=== PATIENT | female | born 1995 | race Native Hawaiian/Other Pacific Islander ===

== ENCOUNTER 2024-11-11 11:08 | Emergency (ER) | payer MEDICAID, SELFPAY ==
[2024-11-11 11:10] VITALS: BMI 29.7
--- NOTE | 2024-11-11 11:46 | XR_ITS ---
Examination: Abdomen sonogram, Limited Date and time of exam: November 11, 2024 12 noon Indications: Epigastric pain with nausea vomiting today Technique: Real-time wilburn scale transabdominal sonographic images of the upper abdomen obtained. Findings: Multiple gallstones Gallbladder wall 0.3 cm no edema Common bile duct 0.4 cm Pancreatic head 2.0 cm Liver 18 cm fatty infiltration focal fatty sparing Gallbladder 3.4 cm Normal hepatopedal venous flow Patent IVC Impression: Cholelithiasis, negative for cholecystitis Mild hepatomegaly fatty liver
--- NOTE | 2024-11-11 11:47 | EDNOTE_ITS ---
<Statement entered by Meg Hogue MD - 11/11/24 15:03> As co-signing physician, I was present and available for consult prn. I concur with the plan and care as documented by the midlevel provider. ED General RME/HPI General Chief complaint: Abdominal Pain Stated complaint: EPIGASTRIC PAIN WITH N/V @ 0300 Time Seen by Provider: 11/11/24 11:45 Arrival date/time: 11/11/24 11:08 CC: Epigastric pain with radiation to the right upper quadrant HPI onset at 3 AM this morning 10 on a 10 scale took Gas-X, the pain is decreased to an 8 on a 10 scale. Vomited x 1 currently nauseated. Denies fever chills shortness of breath or difficulty breathing. Prior history of minor epigastric pain but nothing as significant as today. Related Data Previous Rx's ?Medication ?Instructions ?Recorded ketorolac 10 mg tablet 10 mg PO Q8H #10 tabs Allergies Allergy/AdvReac Type Severity Reaction Status Date / Time pecan nut Allergy Severe Anaphylaxis Verified 11/11/24 11:13 walnut Allergy Severe Anaphylaxis Verified 11/11/24 11:13 Review of Systems Review of Systems Narrative Review of Systems: GEN: No fever, no chills, no weight loss EYES: No discharge, no visual changes, no pain HEENT: No ear pain, no congestion, no sore throat PULM: No shortness of breath, no cough, no congestion CV: No chest pain, no dyspnea on exertion, no palpitations GI: No nausea, no vomiting, no diarrhea, + pain, no constipation : No frequency, no urgency, no dysuria MUSC/SKEL: No joint pain, no back pain SKIN: No rash PSYCH: No hallucinations, no depression HEME/LYMPH: No easy bleeding or bruising tendencies NEURO: No weakness, no headache Past Medical History Social History SMOKING STATUS: Never smoker ED Exam Narrative Physical exam: [General: In mild discomfort but not in any acute distress Head normocephalic HEENT: Within acceptable limits Neck is supple nontender Chest equal chest rise nontender to palpation Respiratory: Clear to auscultation no wheezes crackles or rubs CV: Rate rhythm is regular no murmurs rubs or clicks Abdomen: Epigastric pain with palpation no reflexive guarding no rebound tenderness there is also right upper quadrant tenderness with palpation. No left upper quadrant or lower quadrant tenderness with palpation Back: No CVA tenderness no spinous process tenderness from cervical spine thoracic and lumbar spine Skin: Intact no petechiae rash induration ulceration or crepitus Extremities: Moving all extremity against resistance cap refill less than 2 seconds neurosensory intact Neuro: Awake alert oriented x3 Glascow coma 15 no focal deficits] Note, the patient was very surprised that she had tenderness in the right upper quadrant of the abdomen Course Quality Measures none Orders Category Date Time Status US gall bladder Stat Exams 11/11/24 11:46 Completed CBC Stat Lab 11/11/24 12:37 Received CMP [Comprehensive Metabolic Panel] Stat Lab 11/11/24 12:37 Completed Lipase Stat Lab 11/11/24 12:37 Completed Urinalysis Stat Lab 11/11/24 12:12 Completed Vital Signs Vital signs: Vital Signs Temperature 98.4 F 11/11/24 11:49 Pulse Rate 69 11/11/24 11:49 Respiratory Rate 19 11/11/24 11:49 Blood Pressure 134/83 H 11/11/24 11:49 Pulse Oximetry (%) 100 11/11/24 11:49 Oxygen Delivery Method Room Air 11/11/24 11:49 [facility] Patient data External records reviewed:: [facility] previous records Clinical information provided by:: patient Social determinants that could affect healthcare access:: none Patient has the following chronic illnesses:: Hypertension How is presenting disease/condition affected by chronic disease/condition?: u neffected by Evaluation data The following diagnostics were reviewed and interpreted by me:: lab results and radiology exam(s) Lab and/or radiology exams considered but not ordered:: CMP shows no acute electrolyte imbalances renal Chandrika transaminitis or T. bili elevation Urine is negative for urinary tract infection. Gallbladder shows multiple stones. Interpretation Summary: Gallstones right upper quadrant abdominal pain needs to follow-up outpatient with surgeon Medications Medications considered but not ordered:: None Medication administrations:: None Consultations Consultation(s) initiated? (list below): No Diagnosis Differential Diagnosis ED Complaint MDM: Cholelithiasis choledocholithiasis pancreatitis gastritis Most likely diagnosis given after review of the tests above:: Cholelithiasis Admission Indicated Admission indicated?: not indicated Explain why admission is indicated or not indicated:: Stable for discharge Admission Request Was there a request for admission?: No Disposition Plan Disposition Plan: Discharge Discharge Attestation Discharge Attestation: The patient and all family members were given an opportunity to ask questions and understood the discharge instructions. Discharge instructions specifically effects, indications for sooner follow up or return to the emergency department, and the expected course of current diagnosis. Patient condition: Stable Medical Decision Making Differential Diagnosis Differential Diagnosis: Cholelithiasis choledocholithiasis pancreatitis gastritis Lab Data 11/11/24 12:37 11/11/24 12:37 Labs: Lab Results 11/11/24 11/11/24 Range/Units 12:12 12:37 Sodium 139 (136-145) mMol/L Potassium 4.4 (3.4-5.1) mMol/L Chloride 104 (98-107) mMol/L Carbon Dioxide 26.7 (20.0-31.0) mMol/L Anion Gap 8 (7-16) BUN 8 L (9-23) mg/dL Creatinine 0.7 (0.6-1.3) mg/dL Estim Creat Clear Calc 136.1 (>60) mL/min eGFR > 60 (60 - ) See Note BUN/Creatinine Ratio 11 L (12-20) Ratio Glucose 136 H (74-106) mg/dL Calculated Osmolality 277 (275-295) Calcium 9.7 (8.3-10.6) mg/dL Corrected Calcium 9.7 (8.5-10.1) mg/dL Total Bilirubin 0.4 (0.3-1.2) mg/dL AST 27 (0-34) U/L ALT 49 (10-49) U/L Alkaline Phosphatase 56 (46-116) U/L Total Protein 8.4 H (5.7-8.2) gm/dL Albumin 5.0 (3.5-5.0) gm/dL Globulin 3.4 (2.3-3.5) gm/dL Albumin/Globulin Ratio 1.5 (1.2-2.2) Lipase 34 (12-53) U/L Ur Collection Type Clean Catch Urine Color Lt-Yellow (Lt Yel-Yel) Urine Clarity Clear (Clear/Hazy) Urine pH 7.5 H (5.0-7.0) Ur Specific [place] 1.024 (1.001-1.035) Urine Protein Trace (Neg - Trace) Urine Glucose (UA) Trace (Negative) Urine Ketones 1+ A (Negative) Urine Blood Negative (Negative) Urine Nitrite Negative (Negative) Urine Bilirubin Negative (Negative) Urine Urobilinogen (Auto) Negative (0.0-1.0) mg/dL Ur Leukocyte Esterase Negative (Negative) Urine RBC 7 H (0-3) /hpf Urine WBC 2 (0-5) /hpf Ur Squamous Epith Cells 9 H (0-5) /hpf Urine Bacteria None (None) Discharge Plan Plan Patient Disposition: HOME (Self Care) Patient condition on transfer: Stable Prescriptions/Referrals Prescriptions/Med Rec: New ketorolac 10 mg tablet 10 mg PO Q8H Qty: 10 0RF Rx Instructions: maximum total duration of 5 days from all oral, intranasal, or parenteral formulations Referrals: Shannan Fuentes MD [Physician] - In 1 week Crissy Hutchison [Primary Care Provider] - In 1 week Problem List Clinical Impression: Right upper quadrant abdominal pain, Gallstones Patient/Caregiver Discharge Instructions Other Activity Instructions:: Start a bland diet, take the medications as prescribed, follow-up with the surgeon listed above if there is a worsening of symptoms return the emergency room for reevaluation. Education Materials: What Are Gallstones, ED Diet, [place] (Adult) Print Language: Icelandic Stand Alone Forms: Ketty Award Info., Work/School Release, Patient Portal Info Letter HERON/JONO Supervising Physician HERON/JONO Supervising Physician: Eric Ordonez ENP
[2024-11-11 11:49] VITALS: BP 134/83; PULSE 69; RESP 19; TEMP 36.9; O2SAT 100
[2024-11-11 12:22] LABS: Collection Type, Urine Clean Catch
[2024-11-11 12:31] LABS: Bilirubin,Urine Negative (Negative); Blood,Urine Negative (Negative); Clarity,Urine Clear (Clear/Hazy); Color,Urine Lt-Yellow (Lt Yel-Yel); Glucose, Urine Trace (Negative); Ketones,Urine 1+ (Negative); Leukocyte Esterase,Urine Negative (Negative); Nitrite,Urine Negative (Negative); PH,Urine 7.5 (5.0-7.0); Protein,Urine Trace (Neg - Trace); RBC,Urine 7 /hpf (0-3); Specific Gravity,Urine 1.024 (1.001-1.035); Squamous Epithelial Cell,Urine 9 /hpf (0-5); Urobilinogen,Urine Negative mg/dL (0.0-1.0); WBC,Urine 2 /hpf (0-5)
[2024-11-11 12:46] LABS: Basophils % (Auto) 0 % (0-2.5); Eosinophils % (Auto) 0 % (0-10); Hematocrit 40.7 % (36.0-46.0); Hemoglobin 13.7 g/dL (12.0-16.0); Immature Granulocytes % (Auto) 0 % (0-0); Immature Granulocytes Auto 0.04 Thou/mm3 (0.00-0.00); Lymphocytes # (Auto) 1.1 Thou/mm3 (1.0-4.8); Lymphocytes % (Auto) 10 % (10-50); Mean Corpuscular HGB Conc 33.7 g/dl (31.0-37.0); Mean Corpuscular Hemoglobin 28.3 pg (25.0-35.0); Mean Corpuscular Volume 84 fL (80-100); Monocytes # (Auto) 0.2 Thou/mm3 (0.0-0.8); Monocytes % (Auto) 1 % (0-12); Neutrophils # (Auto) 9.8 Thou/mm3 (1.8-7.7); Neutrophils % (Auto) 88 % (37-80); Nucleated Red Blood Cell % 0 /100 WBC (0); Platelet Count 424 Thou/mm3 (140-440); RDW Standard Deviation 38.9 fL (36.4-46.3); Red Blood Count 4.84 Miln/mm3 (4.00-5.20); White Blood Count 11.2 Thou/mm3 (3.6-11.0)
[2024-11-11 13:04] LABS: Alanine Aminotransferase 49 U/L (10-49); Albumin/Globulin Ratio 1.5 (1.2-2.2); Alkaline Phosphatase 56 U/L (46-116); Anion Gap 8 (7-16); Aspartate Amino Transferase 27 U/L (0-34); BUN/Creatinine Ratio 11 Ratio (12-20); Bilirubin,Total 0.4 mg/dL (0.3-1.2); Blood Urea Nitrogen 8 mg/dL (9-23); Calcium 9.7 mg/dL (8.3-10.6); Calcium (Corrected) 9.7 mg/dL (8.5-10.1); Carbon Dioxide 26.7 mMol/L (20.0-31.0); Chloride 104 mMol/L (98-107); Creatinine (Component) 0.7 mg/dL (0.6-1.3); Estimated Creatinine Clearance 136.1 mL/min (>60); Globulin 3.4 gm/dL (2.3-3.5); Glucose 136 mg/dL (74-106); Lipase 34 U/L (12-53); Osmolality,Calculated 277 (275-295); Potassium 4.4 mMol/L (3.4-5.1); Sodium 139 mMol/L (136-145); Total Protein 8.4 gm/dL (5.7-8.2); eGFR > 60 See Note
== END 2024-11-11 13:58 | disposition home or self-care (01) ==
PROVIDERS: Registered Nurse General Practice; Emergency Provider Emergency Medicine; PCP Nurse Practitioner Family
DX: K80.20 Calculus of gallbladder without cholecystitis without obstruction (principal)
CPT/HCPCS: 36415; 76705; 80053; 81001; 83690; 85025; 99284

== ENCOUNTER 2025-04-03 09:55 | Day surgery (SDC) | payer MEDICAID, SELFPAY ==
[2025-04-01 11:10] VITALS: BMI 31.3
--- NOTE | 2025-04-01 11:16 | EKG_ITS ---
[facility] Test Date: 2025-04-01 Pat Name: EVA NESBITT Department: Room: - Gender: Female Construction Crew Member: ZEHRA : 1995 Requested By: Frank Mensah Order Number: [id number] Reading MD: Frank Mensah Measurements Intervals [place] Rate: 62 P: 9 RI: 143 QRS: 37 QRSD: 90 T: 51 QT: 412 QTc: 421 Interpretive Statements SINUS RHYTHM No previous ECG available for comparison /store/S0/[id number]/ecg/[id number].pdf
[2025-04-01 12:04] LABS: Basophils # (Auto) 0.1 Thou/mm3 (0.0-0.2); Basophils % (Auto) 1 % (0-2.5); Eosinophils # (Auto) 0.2 Thou/mm3 (0.0-0.5); Eosinophils % (Auto) 3 % (0-10); Hematocrit 37.2 % (36.0-46.0); Hemoglobin 12.3 g/dL (12.0-16.0); Immature Granulocytes Auto 0.01 Thou/mm3 (0.00-0.00); Lymphocytes # (Auto) 2.9 Thou/mm3 (1.0-4.8); Lymphocytes % (Auto) 39 % (10-50); Mean Corpuscular HGB Conc 33.1 g/dl (31.0-37.0); Mean Corpuscular Hemoglobin 28.8 pg (25.0-35.0); Mean Corpuscular Volume 87 fL (80-100); Monocytes # (Auto) 0.4 Thou/mm3 (0.0-0.8); Monocytes % (Auto) 6 % (0-12); Neutrophils # (Auto) 3.8 Thou/mm3 (1.8-7.7); Neutrophils % (Auto) 51 % (37-80); Nucleated Red Blood Cell # 0.00 Thou/mm3 (0.00-0.00); Nucleated Red Blood Cell % 0 /100 WBC (0); Platelet Count 382 Thou/mm3 (140-440); RDW Standard Deviation 40.2 fL (36.4-46.3); Red Blood Count 4.27 Miln/mm3 (4.00-5.20); White Blood Count 7.4 Thou/mm3 (3.6-11.0)
[2025-04-01 12:17] LABS: Alanine Aminotransferase 33 U/L (10-49); Albumin, Serum 4.8 gm/dL (3.5-5.0); Albumin/Globulin Ratio 1.7 (1.2-2.2); Alkaline Phosphatase 56 U/L (46-116); Anion Gap 7 (7-16); Aspartate Amino Transferase 23 U/L (0-34); BUN/Creatinine Ratio 19 Ratio (12-20); Bilirubin,Total 0.3 mg/dL (0.3-1.2); Blood Urea Nitrogen 13 mg/dL (9-23); Calcium 10.0 mg/dL (8.3-10.6); Calcium (Corrected) 10.0 mg/dL (8.5-10.1); Carbon Dioxide 26.3 mMol/L (20.0-31.0); Chloride 107 mMol/L (98-107); Creatinine (Component) 0.7 mg/dL (0.6-1.3); Estimated Creatinine Clearance 138.4 mL/min (>60); Globulin 2.8 gm/dL (2.3-3.5); Glucose 90 mg/dL (74-106); HCG,Qualitative Serum Negative; Osmolality,Calculated 279 (275-295); Potassium 4.2 mMol/L (3.4-5.1); Sodium 140 mMol/L (136-145); Total Protein 7.6 gm/dL (5.7-8.2); eGFR > 60 See Note
[2025-04-03] VITALS (8 sets, daily range): BP systolic 131–161; BP diastolic 92–107; PULSE 53–72; RESP 13–20; TEMP 36.4–37.2; O2SAT 99–100
[2025-04-03] MEDS: RINGERS LACTATED 1000 ML 1,000 ML 20 ML IV (10:36)
--- NOTE | 2025-04-03 10:52 | CHAP ---
Patient expressed gratitude for visit and Prayer.
--- NOTE | 2025-04-03 10:52 | CHAP ---
Patient expressed gratitude for visit and Prayer.
--- NOTE | 2025-04-03 12:16 | SUR.PHASEI ---
1216 Patient arrived to recovery resting comfortably in [facility], on oxygen 10L via oxy mask with an oral airway in place, breathing unlabored, vital signs stable, dressing intact to abdomen; dermabond, no bleeding noted, report received from Rojelio HINSON and Salima ALARCON
--- NOTE | 2025-04-03 12:22 | PD.SUROPNT ---
Date of Procedure 04/03/25 Pre Op Diagnosis Symptomatic cholelithiasis Post Op Diagnosis Cholelithiasis with cholecystitis Procedure Laparoscopic cholecystectomy Findings Moderately distended gallbladder with gallstones and chronic cholecystitis Procedure Description Patient was brought into the operating room in supine position. After administration of general endotracheal anesthesia abdomen was prepped and draped in standard surgical manner. A Veress needle was inserted through the umbilicus and pneumoperitoneum was obtained up to 15 mmHg. The Veress needle was then removed, a 5 mm infraumbilical incision was made and the 5mm trocar was inserted. Laparoscopic camera was placed. Under direct visualization a laparoscopic camera a 10 mm trocar was placed in subxiphoid and two 5 mm trocars placed in right upper quadrant. The gallbladder was identified and was noted to be moderately distended with gallstones and chronic cholecystitis. It was retracted cephalad and laterally. Dissection started near the infundibulum of gallbladder where cystic duct and gallbladder junction clearly identified. The cystic duct was circumferentially dissected off the peritoneum and surrounding inflammatory tissue. The critical view of safety was clearly demonstrated. Cystic duct was then divided between 2 endoclips proximally and one distally. The cystic artery was similarly dissected and divided, patient was noted to have anterior and posterior branches of cystic artery that were individually ligated. The gallbladder was then from the liver bed using electrocautery. The gallbladder was then placed inside an Endo Catch and removed from the abdomen utilizing subxiphoid trocar site. The area was copiously and thoroughly washed and irrigated, all the fluid was suctioned and the suction fluid returned clear. Hemostasis achieved using electrocautery. Endoclips noted be in place and intact without any bleeding or any leakage. Hemostasis was adequate and satisfactory. The subxiphoid trocar sites fascial defect was closed with 0 Vicryl using Endo Closure device. Instruments and trocars removed, pneumoperitoneum was evacuated and the incisions closed with 4-0 Monocryl in subcuticular fashion. Instrument needle and sponge counts were all reported to be correct X2. Patient tolerated the procedure well, was extubated, breathing spontaneously and without difficulty and was transferred to postanesthesia care in stable condition. Anesthesia GETA and local Pathology / specimen Other (Gallbladder and contents) Estimated Blood Loss 50 Condition Stable Disposition PACU Surgeon Shannan Fuentes MD Surgical Staff Operation Date: 04/03/25 12:15 Case Staff PATIENT FINANCIAL REPRESENTATIVE: Rojelio Reza RNleather production artisan: Roz Suazo
--- NOTE | 2025-04-03 12:34 | SUR.PHASEI ---
Pt awake, alert, able to follow commands, breathing unlabored, dressing to abdomen clean, dry, and intact, pt tolerating ice chips without difficulty swallowing or n/v, report from Hue Lopez RN
--- NOTE | 2025-04-03 13:01 | SUR.PHASEII ---
discharge instructions given with significant other present, all questions answered
--- NOTE | 2025-04-03 13:10 | SUR.PHASEII ---
Report to Hue Lopez RN
--- NOTE | 2025-04-03 13:21 | SUR.PHASEII ---
1321 Patient meets discharge criteria from recovery, awake and alert, breathing unlabored, vital signs stable, denies pain, dressing intact; no bleeding noted, drinking fluids; denies nausea, assisted with dressing into her clothing by her partner, discharge instructions given to patient and patients partner, partner signed discharge instructions. Patient given all her belongings prior to discharge, transported via wheelchair and left in a private vehicle.
== END 2025-04-03 13:21 | disposition home or self-care (01) ==
PROVIDERS: PCP Family Medicine; Referring Provider Surgery; Visit Provider Surgery
PROC: 0FT44ZZ Resection of Gallbladder, Percutaneous Endoscopic Approach (ICD-10-PCS; CPT 47562; principal; 2025-04-03 12:00)
DX: K80.10 Calculus of gallbladder with chronic cholecystitis without obstruction (principal); I10 Essential (primary) hypertension; Z01.810 Encounter for preprocedural cardiovascular examination
CPT/HCPCS: 47562; 36415; 80053; 84703; 85025; 93005; A4217; A4649; J0131; J0694; J1171; J2704; J3010; J3490; J7120